=== PATIENT | male | born 1990 | race Caucasian/White ===

== ENCOUNTER 2017-04-03 17:24 | Emergency (ER) | payer SELFPAY ==
[2017-04-03 17:30] VITALS: RESP 18; TEMP 98.6; O2SAT 96
--- NOTE | 2017-04-03 17:53 | EDPHY ---
H & P Stated Complaint: Fall, ?LOC, perseverating. - Personal History Current Tetanus/Diphtheria Vaccine: Yes Current Tetanus Diphtheria and Acellular Pertussis (TDAP): Yes - Medical/Surgical History Hx Asthma: No Hx Chronic Respiratory Disease: No Hx Diabetes: No Hx Cardiac Disease: No Hx Renal Disease: No Hx Cirrhosis: No Hx Alcoholism: No Hx HIV/AIDS: No Hx Splenectomy or Spleen Trauma: No Other PMH: PMH: denies - Social History Smoking Status: Never smoked Constitutional: Initial Vital Signs Temperature (C) 37.0 C 04/03/17 17:27 Heart Rate 94 04/03/17 17:27 Respiratory Rate 18 04/03/17 17:27 Blood Pressure 115/81 H 04/03/17 17:27 O2 Sat (%) 96 04/03/17 17:27 O2 Delivery Mode Room Air Allergies/Adverse Reactions: No Known Allergies Allergy (Unverified 05/27/09 14:37) Home Medications: Medication Instructions Recorded NK [No Known Home Meds] 04/03/17 Medical Decision Making - Diagnostics Imaging: Discussed imaging studies w/ sat act instructor Radiologist, I viewed and interpreted images myself ED Course/Re-evaluation: CHIEF COMPLAINT: Amnesia, head injury HISTORY OF PRESENT ILLNESS: The patient is a 27 y/o male arriving via EMS after he struck his head while snowboarding at [place] and now has amnesia and complains of a headache. He cannot tell me why he is in the hospital and says, "to be honest I can't remember." He doesn't remember any details from today, his address, his phone number. Per EMS, they learned from contact on scene that patient fell after a jump while snowboarding and struck his head while helmeted. Loss of consciousness unknown. He was perseverating on scene and transported here for evaluation. He also doesn't remember the drive in the ambulance here. He has a mild headache, but otherwise denies any complaints or injuries. No nausea, vomiting, vision changes, weakness, paresthesias. Tells me he has a history of concussions from football. History from patient not dependable due to amnesia. REVIEW OF SYSTEMS: Unobtainable due to amnesia. PHYSICAL EXAM: HR, BP, O2 Sat, RR. Temp noted General Appearance: Alert, well hydrated, appropriate, and non-toxic appearing. Head: Atraumatic without scalp tenderness or obvious injury Eyes: Pupils equal, round, reactive to light and accommodation, EOMI, no trauma , no injection. Ears: Clear bilaterally, no perforation, normal landmarks Nose: Atraumatic, no rhinorrhea, clear. Throat: There is no erythema or exudates, no lesions, normal tonsils, mucus membranes moist. Neck: Supple, non-tender, no lymphadenopathy. Respiratory: No retractions, no distress, no wheezes, and no accessory muscle use. Lungs are clear to auscultation bilaterally. Cardiovascular: Regular rate and rhythm, no murmurs, rubs, or gallops. Good capillary refill all extremities. Gastrointestinal: Abdomen is soft, non-tender, non-distended, no masses, no rebound, no guarding, no peritoneal signs. Musculoskeletal: Normal active ROM of all extremities, atraumatic. Neurological: Alert, appropriate, and interactive. The patient has non-focal cranial nerves, motor, sensory, and cerebellar exam. Skin: No rashes, good turgor, no nodules on palpation. No visible trauma. PAST MEDICAL HISTORY: Concussions from football PAST SURGICAL HISTORY: Denies SOCIAL HISTORY: Lives in [place] DIAGNOSTICS/PROCEDURES/CRITICAL CARE TIME: Head CT: negative DIFFERENTIAL DIAGNOSIS: The differential diagnosis for the patient's head injury included but was not limited to concussion, skull fracture, intra- parenchymal contusion, subarachnoid, subdural and epidural hematoma. MEDICAL DECISION MAKING: This is a healthy 27 y/o male with multiple prior concussions who presents with antegrade and retrograde amnesia and a headache after a witnessed fall and head strike while snowboarding today. He has an otherwise normal neurologic exam. No visible trauma. He will require a head CT to rule out intracranial trauma due to his ongoing amnesia and known head injury. Reassessed patient. Head CT normal. Neurologic exam remains normal. Patient will be discharged with standard head injury and concussion care and follow up instructions. He will be discharged home in the care of his friend who is no at bedside. Departure - Departure Disposition: Home, Routine, Self-Care Clinical Impression: Amnesia Concussion Qualifiers: Encounter type: initial encounter Loss of consciousness presence/duration: with LOC of unspecified duration Qualified Code(s): S06.0X9A - Concussion with loss of consciousness of unspecified duration, initial encounter Head injury Qualifiers: Encounter type: initial encounter Qualified Code(s): S09.90XA - Unspecified injury of head, initial encounter Condition: Good Instructions: Concussion (ED), Head Injury (ED), Post Concussion Syndrome (ED) Additional Instructions: 1. Brain rest while symptoms are present. Avoid screen time including TV, phone , computer, video games, until symptoms have improved. Slowly advance activity as tolerated. 2. Physical rest for at least the next 7-10 days. Avoid any activities that could lead to another head injury in this time frame and longer if symptoms have not completely resolved. This includes contact sports, skiing/snowboarding , biking, etc. 3. Follow up with your primary care provider and/or head injury specialist for unimproved symptoms over the next 1-2 weeks. 4. Return to the ED for worsening of condition. Referrals: Mayte Ibanez MD [Medical Doctor] - As per Instructions Report Scribed for: Paulo Lin Report Scribed by: Adriana Mraie Date of Report: 04/03/17 Time of Report: 18:26
[2017-04-03 18:58] VITALS: BP 132/77; PULSE 95
== END 2017-04-03 18:58 | disposition home or self-care (01) ==
LOC: EDUNIT#
DX: S06.0X9A Concussion with loss of consciousness of unspecified duration, initial encounter (principal); R41.3 Other amnesia; V00.311A Fall from snowboard, initial encounter; Y99.8 Other external cause status; Y93.23 Activity, snow (alpine) (downhill) skiing, snowboarding, sledding, tobogganing and snow tubing